=== PATIENT | female | born 1950 | race Caucasian/White ===

== ENCOUNTER 2022-01-07 17:10 | Emergency (ER) | payer MEDICARE, SELFPAY ==
[2022-01-07 17:19] VITALS: BP 176/92; PULSE 95; O2SAT 99
[2022-01-07 17:22] VITALS: BP 144/69; PULSE 87; RESP 18; O2SAT 97; BMI 34.2
--- NOTE | 2022-01-07 17:28 | ED.ALLEREA ---
HPI - Allergic Reaction General Chief complaint: Allergic Reaction Stated complaint: allergic reaction Time Seen by Provider: 01/07/22 17:27 History of Present Illness HPI narrative: Patient is a 71-year-old female reported having 3 day history of having hives swelling to the lips. Patient was seen earlier at [facility]. Monitored sent home. Patient started having some hoarseness in her voice some swelling to the upper lip give herself an EpiPen from a family member. Patient claimed symptom has improved. The rash has subsided. Patient denies any rash and a mucosal membranes. Seems the voice is a little bit more hoarse than usual. There is no other change in her diet. There is no change in her environment. There is no new head. There is no new medication. Patient is not on an KHADIJAH-inhibitor. Denies any coughing congestion upper respiratory symptoms denies any diaphoresis no shortness of breath. Related Data Previous Rx's Medication Instructions Recorded diphenhydramine HCl 25 mg capsule 25 mg PO Q8H 5 Days #15 cap 01/07/22 (Benadryl) epinephrine 0.3 mg/0.3 mL 0.3 mg (0.3 mL) IM ONCE PRN #1 ea 01/07/22 injection, auto-injector (EpiPen) famotidine 20 mg tablet (Pepcid) 20 mg PO BID 5 Days #10 tab 01/07/22 prednisone 20 mg tablet 40 mg PO DAILY #10 tab 01/07/22 Allergies Allergy/AdvReac Type Severity Reaction Status Date / Time amoxicillin [From Augmentin] Allergy Rash Verified 01/07/22 17:28 clavulanic acid Allergy Rash Verified 01/07/22 17:28 [From Augmentin] Review of Systems Review of Systems: Positive upper lip swelling positive slight hoarseness to voice Yes all other systems are reviewed and are negative PMFSH Past Medical History Attestation statement: The following information was validated with the patient. Medical History Arthritis HTN (hypertension) Social History Social History Alcohol intake: never Patient Tobacco Use Status: Never used Tobacco Use of substances other than those prescribed or required for medical reasons: No Advance Directives: Yes Advance Directives Information Provided: No Advance Directives on File: No Physical Exam ED Vital Signs: Vital Signs - 24 hr 01/07/22 17:22 03/10/19 18:01 Temperature 97.6 F Pulse Rate 87 74 Respiratory Rate 18 13 Blood Pressure 144/69 H 125/50 L Pulse Oximetry 97 99 BMI result Body Mass Index 34.2 Appearance: Alert. Oriented X3. No acute distress. Eyes: Pupils equal, round and reactive to light. ENT: Pharynx normal. minimal swelling to the upper lip noted. Slight hoarseness to voice Neck: Normal inspection. Neck supple. No lymph nodes noted. No crepitus CVS: Normal heart rate and rhythm. Pulses normal. Normal S1 and S2 Respiratory: No respiratory distress. Breath sounds normal. No Wheezing. No rales Abdomen: Soft and nontender. No rigidity. No distention. good BS x4 Skin: Skin warm and dry. Normal skin color. Normal skin turgor. Extremities: No lower extremity edema. Neurovascular intact to all extremities. No Lacerations. No Rash Neuro: Oriented X 3. No motor deficit. No sensory deficit. Moving all extermities. No slurred speech MDM - Allergic Reaction MDM Narrative Medical decision making narrative: patient monitored in the emergency department for 2 hours. Symptom slightly improved. No distress. Will discharge patient home. Given precaution. Given a prescription for epinephrine steroid and Pepcid. Patient is in stable condition. Medical Records Attestation: I reviewed the patient's medical records. Lab Data Attestation: I reviewed the patient's lab results. ABG Data Attestation: I personally reviewed and interpreted this ABG as follows: Discharge Plan Discharge Clinical Impression: Allergic reaction Patient Disposition: Home, Self-Care Instructions: General Allergic Reaction (ED) Prescriptions: New prednisone 20 mg tablet 40 mg PO DAILY Qty: 10 0RF famotidine [Pepcid] 20 mg tablet 20 mg PO BID 5 Days Qty: 10 0RF diphenhydramine HCl [Benadryl] 25 mg capsule 25 mg PO Q8H 5 Days Qty: 15 0RF epinephrine [EpiPen] 0.3 mg/0.3 mL auto-injector 0.3 mg IM ONCE PRN (Reason: extreme reaction) Qty: 1 0RF Rx Instructions: for 2 doses Referrals: Amber Torres APRN [Primary Care Provider] - 2 days
[2022-01-07] MEDS: methylPREDNISolone Sod Succ 125 MG/2 ML VIAL IVPUSH (17:48)
[2022-01-07] MEDS: Famotidine/PF 20 MG/2 ML VIAL IVPUSH (17:48)
--- NOTE | 2022-01-07 17:54 | PC.NURSE ---
patient a&ox3, vss, family at bedside, pt medicated per order, pt speaking in full sentences, denies sob/santillan, vss, will continue to monitor.
[2022-01-07 18:01] VITALS: BP 125/50; PULSE 74; RESP 13; TEMP 36.4; O2SAT 99
--- NOTE | 2022-01-07 18:03 | PC.NURSE ---
pt a&ox3, vss, hives started approx 3 days ago - unknown cause, now having upper lip swelling. Pt was seen at [facility] today for same - monitored and discharged w no treatments. pt started experiencing hoarseness/throat itching and administered epipen around 1630. 50mg benadryl given by EMS - 20G IV L AC. pt denies pain, shortness of breath, or breathing difficulties.
== END 2022-01-07 19:11 | disposition home or self-care (01) ==
PROVIDERS: Emergency Provider Emergency Medicine Emergency Medical Services; PCP Nurse Practitioner Family
DX: T78.40XA Allergy, unspecified, initial encounter (principal); R21 Rash and other nonspecific skin eruption; R49.0 Dysphonia; R22.0 Localized swelling, mass and lump, head; X58.XXXA Exposure to other specified factors, initial encounter; I10 Essential (primary) hypertension
CPT/HCPCS: 96374; 96375; 99284; J2930